=== PATIENT | male | born 1985 | race Caucasian/White ===

== ENCOUNTER 2019-10-30 16:39 | Emergency (ER) | payer OTHER ==
[~2019-10-30] VITALS: Ht 177.8 cm; Wt 86.4 kg
[2019-10-30 17:44] LABS: CLARITY,URINE CLEAR (Clear); COLOR,URINE YELLOW (Yellow); GLUCOSE, URINE NEGATIVE (Neg); KETONES,URINE NEGATIVE (Neg); LEUKOCYTE ESTERASE ,URINE NEGATIVE (Neg); NITRITES, URINE NEGATIVE (Neg); OCCULT BLOOD,URINE NEGATIVE (Neg); PH,URINE 6.5 (4.8-8.0); PROTEIN,URINE NEGATIVE (Neg); UA COLLECTION TYPE CLN CATCH MIDSTREAM; UROBILINOGEN,URINE 0.2 E.U/dL (0.2-1.0)
[2019-10-30 18:02] LABS: BASOPHILS % (AUTO) 0.2 % (0-1); EOSINOPHILS # (AUTO) 0.1 X10'3 (0-0.9); EOSINOPHILS % (AUTO) 1.1 % (0-6); HEMATOCRIT 43.4 % (42.0-52.0); HEMOGLOBIN 14.9 g/dl (14.0-17.9); LYMPHOCYTES # (AUTO) 1.2 X10'3 (1.1-4.8); LYMPHOCYTES % (AUTO) 11.2 % (21-51); MEAN CORPUSCULAR HGB CONC 34.3 g/dL (33.0-36.5); MEAN CORPUSCULAR VOLUME 87.5 FL (78-98); MEAN PLATELET VOLUME 7.9 FL (7.4-10.4); MONOCYTES # (AUTO) 0.5 X10'3 (0-0.9); MONOCYTES % (AUTO) 4.9 % (2-12); NEUTROPHILS # (AUTO) 9.1 X10'3 (1.8-7.7); NEUTROPHILS % (AUTO) 82.6 % (42-75); PLATELET COUNT 226 X10'3 (140-440); RED BLOOD COUNT 4.96 X10'6 (4.70-6.10); RED CELL DISTRIBUTION WIDTH 12.7 % (11.5-14.5)
[2019-10-30 18:16] LABS: ALANINE AMINOTRANSFERASE 41 U/L (12-78); ALBUMIN/GLOBULIN RATIO 1.1 (1.1-1.5); ALKALINE PHOSPHATASE 67 IU/L (46-116); ANION GAP 7 (8-16); ASPARTATE AMINO TRANSFERASE 49 U/L (10-37); BILIRUBIN,TOTAL 0.3 MG/DL (0.1-1.0); BLOOD UREA NITROGEN 15 MG/DL (7-18); BUN/CREATININE RATIO 12.4 (5.4-32.0); CALCIUM 9.5 MG/DL (8.5-10.1); CHLORIDE 107 MMOL/L (99-107); CREATININE 1.21 MG/DL (0.60-1.10); GLUCOSE 99 MG/DL (70-104); LIPASE 77 U/L (73-393); POTASSIUM 4.1 MMOL/L (3.5-5.1); SODIUM 142 MMOL/L (135-145); TOTAL CARBON DIOXIDE 28.1 MMOL/L (24-32); TOTAL PROTEIN 7.6 G/DL (6.4-8.2); eGFR 68 ML/MIN
[2019-10-30] MEDS ORDERED: normal saline 1000ML IV soln IVB ONE (18:20)
[2019-10-30 21:05] VITALS: BP 128/82
== END 2019-10-30 21:06 | disposition home or self-care (01) ==
LOC: ER 16:40
DX: T14.8XXA Other injury of unspecified body region, initial encounter (principal); R10.30 Lower abdominal pain, unspecified; F17.200 Nicotine dependence, unspecified, uncomplicated; X58.XXXA Exposure to other specified factors, initial encounter; Y93.89 Activity, other specified; Y92.89 Other specified places as the place of occurrence of the external cause; Y99.8 Other external cause status
CPT/HCPCS: 36415; 74176; 76705; 80053; 81003; 83690; 85025; 99285; J7030

== ENCOUNTER 2021-06-22 14:14 | Emergency (ER) | payer OTHER ==
[~2021-06-22] VITALS: Ht 177.8 cm; Wt 69.1 kg
[2021-06-22 14:19] VITALS: BP 136/91
[2021-06-22] MEDS ORDERED: normal saline 1000ML IV soln IVB ONE ×2 (14:40)
[2021-06-22 15:02] LABS: BASOPHILS % (AUTO) 0.4 % (0-1); EOSINOPHILS # (AUTO) 0.1 X10'3 (0-0.9); EOSINOPHILS % (AUTO) 1.5 % (0-6); HEMATOCRIT 38.8 % (42.0-52.0); HEMOGLOBIN 13.7 g/dl (14.0-17.9); LYMPHOCYTES # (AUTO) 1.7 X10'3 (1.1-4.8); LYMPHOCYTES % (AUTO) 27.7 % (21-51); MEAN CORPUSCULAR HEMOGLOBIN 30.5 PG (27.0-31.0); MEAN CORPUSCULAR HGB CONC 35.3 g/dL (33.0-36.5); MEAN CORPUSCULAR VOLUME 86.5 FL (78-98); MEAN PLATELET VOLUME 7.8 FL (7.4-10.4); MONOCYTES # (AUTO) 0.4 X10'3 (0-0.9); MONOCYTES % (AUTO) 6.2 % (2-12); NEUTROPHILS # (AUTO) 3.9 X10'3 (1.8-7.7); NEUTROPHILS % (AUTO) 64.2 % (42-75); PLATELET COUNT 199 X10'3 (140-440); RED BLOOD COUNT 4.49 X10'6 (4.70-6.10)
[2021-06-22 15:02] LABS: ABG BASE EXCESS -4.8 mmol/L (-2.0-2.0); ABG HCO3 19.9 mmol/L (22.0-26.0); ABG OXYGEN SATURATION 96.4 % (94-97); ABG PCO2 (T) 35.3 mmHg (35.0-48.0); ABG PO2 (T) 88.6 mmHg (75.0-100.0); ALLEN'S TEST POSITIVE; FCOHb 2.7 % (0.0-3.9); FMetHb 0.3 % (0.0-1.5); FO2Hb 93.5 % (94-97); PATIENT TEMPERATURE 36.7; TOTAL HEMOGLOBIN 14.1 G/dl (14.0-18.0)
[2021-06-22 15:18] LABS: ALANINE AMINOTRANSFERASE 34 U/L (12-78); ALBUMIN 3.1 G/DL (3.4-5.0); ALBUMIN/GLOBULIN RATIO 1.1 (1.1-1.5); ALKALINE PHOSPHATASE 114 IU/L (46-116); ANION GAP 7 (8-16); ASPARTATE AMINO TRANSFERASE 12 U/L (10-37); BILIRUBIN,TOTAL 0.4 MG/DL (0.1-1.0); BLOOD UREA NITROGEN 16 MG/DL (7-18); BUN/CREATININE RATIO 21.9 (5.4-32.0); CALCIUM 7.6 MG/DL (8.5-10.1); CHLORIDE 105 MMOL/L (99-107); CREATININE 0.73 MG/DL (0.60-1.10); GLUCOSE 340 MG/DL (70-104); SODIUM 138 MMOL/L (135-145); TOTAL CARBON DIOXIDE 26.3 MMOL/L (24-32); TOTAL PROTEIN 5.8 G/DL (6.4-8.2); eGFR > 90 ML/MIN
[2021-06-22 15:28] LABS: MAGNESIUM 1.6 MG/DL (1.5-2.4); OSMOLALITY 298 MOSM/K (280-300); PHOSPHORUS 3.3 MG/DL (2.3-4.5)
[2021-06-22] MEDS ORDERED: Insulin Reg/NS 100units/100mL 100 ML IV PRN (15:30)
== END 2021-06-22 16:55 | disposition home or self-care (01) ==
LOC: ER 14:15
DX: E10.65 Type 1 diabetes mellitus with hyperglycemia (principal); R63.4 Abnormal weight loss; Z68.21 Body mass index [BMI] 21.0-21.9, adult
CPT/HCPCS: 36415; 36600; 80053; 82803; 82948; 83735; 83930; 84100; 84443; 85018; 85025; 96360; 99283; J7030; 99284